=== PATIENT | female | born 1955 | race Caucasian/White ===

== ENCOUNTER 2018-09-19 09:33 | Emergency (ER) | payer MEDICARE ==
[~2018-09-19] VITALS: Ht 167.6 cm; Wt 81.8 kg
[~2018-09-19 09:33] MED LIST: DIVA125T2 PO; DIVA250T14 PO; RISP2TAB35 PO; RISP4TAB34 PO; TRAZ-137 PO
[2018-09-19 09:36] VITALS: BP 120/74
[2018-09-19] MEDS ORDERED: RISP4TAB34 PO (09:51)
[2018-09-19] MEDS ORDERED: RISPERIDONE 1 MG TABLET PO ONE (10:00)
== END 2018-09-19 10:27 | disposition home or self-care (01) ==
LOC: ED 10:15
DX: F20.0 Paranoid schizophrenia (principal); F17.200 Nicotine dependence, unspecified, uncomplicated
CPT/HCPCS: 99284

== ENCOUNTER 2020-03-09 22:17 | Emergency (ER) | payer OTHER, MEDICAID ==
[~2020-03-09] VITALS: Ht 154.9 cm; Wt 80.0 kg
[~2020-03-09 22:17] MED LIST changes: -TRAZ-137 PO; +TRAZ-175 PO
[2020-03-09] MEDS: PLEASE ENTER ALLERGIES MC SCH (22:30)
[2020-03-09] MEDS ORDERED: LORazepam 2 MG/ML, 1ML IM ONE (22:30)
[2020-03-09] MEDS ORDERED: ZIPRASIDONE 20 MG INJ IM ONE (22:30)
[2020-03-09 22:40] LABS: BASOPHILS # (AUTO) 0.13 x10^3/uL (0-0.1); BASOPHILS % (AUTO) 2 % (0-1); EOSINOPHILS # (AUTO) 0.12 x10^3/uL (0-0.4); EOSINOPHILS % (AUTO) 1 % (1-7); LYMPHOCYTES % (AUTO) 24 % (22-44); MD NO; MEAN CORPUSCULAR HEMOGLOBIN 31.7 pg (27.0-34.8); MEAN CORPUSCULAR HGB CONC 33.5 g/dL (32.4-35.8); MEAN CORPUSCULAR VOLUME 94.6 fL (80-100); MEAN PLATELET VOLUME 8.1 fL (7.4-10.4); MONOCYTES # (AUTO) 0.54 x10^3/uL (0.2-0.8); MONOCYTES % (AUTO) 6 % (2-9); NEUTROPHILS # (AUTO) 5.93 x10^3/uL (1.8-6.8); NEUTROPHILS % (AUTO) 67 % (42-75); PLATELET COUNT 316 x10^3/uL (130-400); RED BLOOD COUNT 4.35 x10^6/uL (3.82-5.3)
[2020-03-09 22:49] LABS: ALANINE AMINOTRANSFERASE 13 U/L (12-78); ALBUMIN 3.9 g/dL (3.4-5.0); ANION GAP 7 mmol/L (5-15); CHLORIDE 108 mmol/L (98-107); SALICYLATE LEVEL 5.1 mg/dL (2.8-20.0)
[2020-03-09 22:51] LABS: ALKALINE PHOSPHATASE 63 U/L (45-117); BILIRUBIN,TOTAL 0.7 mg/dL (0.2-1.0); CREATININE 0.97 mg/dL (0.55-1.02); TOTAL PROTEIN 7.4 g/dL (6.4-8.2)
--- NOTE | 2020-03-09 23:15 | NUR ---
Pt bib remsa, pt is a&ox2. Pt is rambling about [place]le, [place] iced teas, and seeing blood everywhere. Pt is somewhat cooperative but doesn't always follow commands appropriately. Pt was found by EVETTE wandering downtown.
--- NOTE | 2020-03-10 00:09 | NUR ---
Pt ambulated to restroom and provided urine sample. Pt back in room, sitter in direct line of sight, no current needs. Resp even and unlabored.
[2020-03-10 00:16] LABS: MICROSCOPIC AUTO
[2020-03-10 00:26] LABS: AMPHETAMINE SCREEN, URINE Negative (Negative); BARBITURATE SCREEN, URINE Negative (Negative); BENZODIAZEPINE SCREEN, URINE Negative (Negative); CANNABINOID SCREEN, URINE Negative (Negative); COCAINE SCREEN, URINE Negative (Negative); METHADONE SCREEN, URINE Negative (Negative); OPIATE SCREEN, URINE Negative (Negative)
--- NOTE | 2020-03-10 00:40 | NUR ---
TASK RN: PT RESTING IN [facility] W EYES CLOSED. EVEN/REGULAR RESPIRATIONS NOTED. SITTER PRESENT
--- NOTE | 2020-03-10 00:56 | NUR ---
Pt attempted to elope from ER. Pt was looking back and forth rapidly while telling nurse to "come with her to safety." Pt reorriented and redirected back to room. Pt resting at this time.
[2020-03-10] MEDS ORDERED: CEFTRIAXONE 1,000 MG IM ONE (01:00)
[2020-03-10] MEDS ORDERED: CEFTRIAXONE 1,000 MG ONE (01:24)
--- NOTE | 2020-03-10 01:56 | NUR ---
MD Major (telepsych) spoke to patient. She recommends inpatient treatment for pt and geodon 20mg twice a day.
--- NOTE | 2020-03-10 05:22 | NUR ---
GAS STATION SUPERVISOR: PACKET FAXED TO [facility]. IS SELF PAY ONLY; CONFIRMATION FAX RECEIVED BACK.
--- NOTE | 2020-03-10 05:35 | NUR ---
GREEN CHAIN OFF BEARER: TELEPSYCH CONSULT FAX RECEIVED. MED RECOMMENDATIONS PRESENTED TO ERMD AND MED ORDERS RECEIVED PER THE RECOMMENDATIONS.
--- NOTE | 2020-03-10 05:45 | NUR ---
Food and water provided to patient. Pt tearful and asking for "brother sincere"
--- NOTE | 2020-03-10 06:06 | NUR ---
Pt attempted to elope again. Pt was sitting at discharge desk, tearful. Pt stated that she thinks she "lost a friend." Pt redirected easily to room, pt given another blanket and said she didn't "really care that gilberto's ." Pt in bed, resp even and unlabored, in no acute distress at this time.
[2020-03-10] MEDS: PLEASE ENTER ALLERGIES MC SCH ×2 (06:30→14:30)
--- NOTE | 2020-03-10 06:51 | NUR ---
report from Armida
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
--- NOTE | 2020-03-10 08:30 | NUR ---
MEAL TRAY GIVEN. SITTER PRESENT
[2020-03-10] MEDS: ZIPRASIDONE 20MG CAPSULE PO SCH ×2 (09:00→20:36)
[2020-03-10] MEDS: CEFDINIR 300 MG CAPSULE PO SCH ×2 (09:00→22:00)
--- NOTE | 2020-03-10 09:24 | NUR ---
PT RESTING ON GURNEY, TEARFUL AT TIMES. SITTER PRESENT
--- NOTE | 2020-03-10 10:30 | NUR ---
PT AMBULATED TO BATHROOM, WILL OCCASIONLY CALL OUT RANDOM NAMES. SITTER PRESENT
--- NOTE | 2020-03-10 11:41 | NUR ---
PT RESTING, SITTER PRESENT.
--- NOTE | 2020-03-10 12:30 | NUR ---
GIVEN MEAL TRAY, PT YELLING RANDOM WORDS, SITTER PRESENT
[2020-03-10] MEDS ORDERED: ZIPRASIDONE 20MG CAPSULE ONE ×2 (13:26→20:34)
[2020-03-10] MEDS ORDERED: CEFDINIR 300 MG CAPSULE ONE (13:26)
--- NOTE | 2020-03-10 13:30 | NUR ---
PT RESTING, AMBULATED TO [facility]
--- NOTE | 2020-03-10 15:18 | NUR ---
PT SLEEPING, SITTER PRESENT
--- NOTE | 2020-03-10 16:13 | NUR ---
PT AMBULATED TO BATHROOM, SITTER PRESENT.
--- NOTE | 2020-03-10 17:00 | NUR ---
PT GIVEN MEAL TRAY.
--- NOTE | 2020-03-10 18:50 | NUR ---
REPORT FROM LIZBETH JIANG ASSUMING CARE OF PT AT THIS TIME
--- NOTE | 2020-03-10 18:50 | NUR ---
REPORT TO JACKI
--- NOTE | 2020-03-10 20:04 | NUR ---
PT ATTEMPTED TO RUN INTO ANOTHER OCCUPIED ROOM, PT NOT REDIRECTED BY APOLINAR LAM TO ASSIST PT BACK TO BED. PT NOW BACK ON [place], WILL TRANSFER TO HOSPITAL BED ONCE PT IS CALMER
--- NOTE | 2020-03-10 20:36 | NUR ---
PT UP TO RESTROOM, BED SWITCHED TO HOSPITAL BED, PT MEDICATED PER Dec, RIGHTS VERIFIED. JOSE LAM REMAINS IN PLACE
--- NOTE | 2020-03-10 21:11 | NUR ---
PT RESTING ON HOSPITAL BED JOSE LAM IN [facility]
--- NOTE | 2020-03-10 22:00 | NUR ---
PT FOUND TO BE GRABBING DOOR AND SHOUTING AT SITTER, PT DIRECTED TO RESTROOM AND DIRECTED BACK TO BED AT THIS TIME
--- NOTE | 2020-03-10 22:02 | NUR ---
PT PROVIDED WITH SANDWICH AT THIS TIME
[2020-03-10] MEDS ORDERED: HALOPERIDOL 5 MG/ML IM ONE (22:30)
[2020-03-10] MEDS ORDERED: DIPHENHYDRAMINE 50 MG/ML, 1ML IM ONE (22:30)
[2020-03-10] MEDS ORDERED: LORazepam 2 MG/ML, 1ML IM ONE (22:30)
[2020-03-10] MEDS ORDERED: LORazepam 2 MG/ML, 1ML ONE (22:31)
[2020-03-10] MEDS ORDERED: HALOPERIDOL 5 MG/ML ONE (22:31)
[2020-03-10] MEDS ORDERED: DIPHENHYDRAMINE 50 MG/ML, 1ML ONE (22:31)
--- NOTE | 2020-03-10 22:34 | NUR ---
PT HAS ESCALATED TO ATTEMPTING TO ELOPE AND SCREAMING AT SITTER. PT REFUSING TO FOLLOW COMMANDS AND KEEPS SHOUTING FOLLOW ME ITS THE SAFEST WAY. ATTEMPTED TO REORIENT PT HOWEVER UNSUCCESSFUL, ERP UPDATED NEW MED ORDERS, PT MEDICATED PER MAR SECURITY AT BEDSIDE TO ASSIST HOLDING PT
--- NOTE | 2020-03-10 23:04 | NUR ---
PT NOW SLEEPING ON HOSPITAL BED. SITTER IN HALLWAY
--- NOTE | 2020-03-10 23:51 | NUR ---
PT STILL SLEEPING, SITTER IN [place] FOR SAFETY
--- NOTE | 2020-03-11 00:47 | NUR ---
BREAK RN FOR PRIMARY RN JACKI. PT RESTING WITH EYES CLOSED ON ED GURNEY, RESP REGULAR, EVEN, UNLABORED. PT IN MONITORED ROOM AND SITTER AT DOOR FOR CONTINUOUS SAFETY OBSERVATION. ANILA NOTED. GARAGE DOORS REMAIN DOWN FOR SAFETY. SIDE RAILS UPX2. FALL PRECAUTIONS IN PLACE. Addendum: 03/11/20 at 0110 by MIL BREAK RN FOR PRIMARY RN JACKI. PT RESTING WITH EYES CLOSED ON HOSPITAL BED, RESP REGULAR, EVEN, UNLABORED. PT IN MONITORED ROOM AND SITTER AT DOOR FOR CONTINUOUS SAFETY OBSERVATION. NAD NOTED. GARAGE DOORS REMAIN DOWN FOR SAFETY. SIDE RAILS UPX2. FALL PRECAUTIONS IN PLACE.
--- NOTE | 2020-03-11 01:30 | NUR ---
BEDSIDE REPORT AND TRANSFER OF CARE BACK TO PRIMARY RN JACKI
--- NOTE | 2020-03-11 01:55 | NUR ---
PT CONTINES TO REST SITTER IN HALLWAY
--- NOTE | 2020-03-11 02:59 | NUR ---
PT STILL SLEEPING ON HOSPITAL BED, [place] IN [place]
--- NOTE | 2020-03-11 04:11 | NUR ---
PT SLEEPING ON BED JOSE LAM IN [facility]
--- NOTE | 2020-03-11 06:27 | NUR ---
pt up to restroom and back to bed no assist req. sitter remains
--- NOTE | 2020-03-11 06:55 | NUR ---
Report from Elvi JIANG. Pt resting in bed with eyes closed, resp even and unlabored, NADN. Room remains secured, sitter within eyesight of pt, all safety measures observed.
--- NOTE | 2020-03-11 07:34 | NUR ---
Meal tray ordered for pt. Pt continues resting in bed with eyes closed, resp even and unlabored, ANILAN.
--- NOTE | 2020-03-11 08:27 | NUR ---
Meal tray delivered to pt with SI precautions observed. This RN attempted to perform suicide reassessment per protocol and pt became visibly upset, shouting "Why do I have to go through this suicide shit again? Dear Mr. Carlson what is the point of anything anymore?" This RN provided verbal reassurance and pt became more calm, began eating breakfast, denies other needs.
--- NOTE | 2020-03-11 09:42 | NUR ---
Pt continues resting in bed, NADN, watching TV.
--- NOTE | 2020-03-11 10:08 | NUR ---
Pt ambulatory to bathroom and back to bed without difficulty. Pt able to position herself in bed for comfort, denies other needs. Room remains secured, sitter within eyesight of pt, all safety measures observed.
[2020-03-11] MEDS ORDERED: ZIPRASIDONE 20MG CAPSULE ONE (10:16)
[2020-03-11] MEDS ORDERED: CEFDINIR 300 MG CAPSULE ONE (10:16)
[2020-03-11] MEDS: CEFDINIR 300 MG CAPSULE PO SCH (10:24)
[2020-03-11] MEDS: ZIPRASIDONE 20MG CAPSULE PO SCH (10:24)
--- NOTE | 2020-03-11 10:25 | NUR ---
Pt medicated per MAR, denies other needs.
--- NOTE | 2020-03-11 11:11 | NUR ---
Pt resting in bed with eyes closed, resp even and unlabored, NADN. Room remains secured, sitter within eyesight of pt, all safety measures observed.
--- NOTE | 2020-03-11 11:31 | NUR ---
Meal tray ordered for pt.
--- NOTE | 2020-03-11 12:16 | NUR ---
Meal tray delivered to pt with SI precautions observed.
[2020-03-11] MEDS ORDERED: OLANZAPINE 10 MG INJ IM PRN (12:30)
[2020-03-11] MEDS ORDERED: NICOTINE 14MG/24 HR PATCH.TD24 TD ONE (12:30)
[2020-03-11] MEDS ORDERED: NICOTINE 14MG/24 HR PATCH.TD24 ONE (12:59)
[2020-03-11] MEDS ORDERED: OLANZAPINE 10 MG TABLET ONE (12:59)
[2020-03-11] MEDS: OLANZAPINE 10 MG TABLET PO SCH (13:03)
[2020-03-11] MEDS: PLEASE ENTER ALLERGIES MC SCH (13:03)
--- NOTE | 2020-03-11 13:03 | NUR ---
RECEIVED REPORT FROM APOLINAR DOW. PT RESTING IN BED. NADN. MEDICATED PER DEC. SITTER REMAINS AT BEDSIDE. ROOM REMAINS SECURE.
--- NOTE | 2020-03-11 14:20 | NUR ---
PT CRYINIG IN BED. STATES SHE IS UPSET AND WANTS SOMETHING COLD. PROVIDED W/ CARLOS GUEVARA.
--- NOTE | 2020-03-11 14:28 | NUR ---
THROUGHPUT: [facility] DENIED DUE TO PT INS-[employer]
--- NOTE | 2020-03-11 14:56 | NUR ---
PT RESTING IN BED. NADN. SITTER REMAINS AT BEDSIDE. ROOM REMAINS SECURE.
--- NOTE | 2020-03-11 15:10 | NUR ---
PT RESTING IN BED. NADN. SITTER REMAINS AT BEDSIDE. ROOM REMAINS SECURE.
--- NOTE | 2020-03-11 16:03 | NUR ---
PT RESTING IN BED. NADN. SITTER REMAINS AT BEDSIDE. ROOM REMAINS SECURE.
--- NOTE | 2020-03-11 16:15 | NUR ---
MEAL TRAY PROVIDED.
--- NOTE | 2020-03-11 16:46 | NUR ---
PT RESTING IN BED. NADN. VSS. SITTER REMAINS AT BEDSIDE. ROOM REMAINS SECURE.
--- NOTE | 2020-03-11 18:07 | NUR ---
PT UPSET ABOUT BEING STUCK IN HER ROOM AND WANTS TO GO OUTSIDE TO SMOKE. PT EDUCATED ON SMOKE FREE POLICY. PT UPSET. MEDICATED PER MAR AND PROVIDED W/ SNACKS. PT NOW CALM IN ROOM.
--- NOTE | 2020-03-11 19:00 | NUR ---
PT RESTING ON [place]. JOSE. SITTER REMAINS AT BEDSIDE. ROOM REMAINS SECURE.
--- NOTE | 2020-03-11 19:05 | NUR ---
LATE NOTE: REPORT RECEIVED FROM APOLINAR PINEDO. PT RESTING WITH EYES CLOSED, RESPIRATIONS EVEN AND NONLABORED. SITTER IN HALLWAY WITHIN LINE OF SIGHT, ROOM SECURED.
--- NOTE | 2020-03-11 21:36 | NUR ---
PT PROVIDED COFFEE AND WATER. PT RESTING ON GURNEY WITH EYES CLOSED, RESPIRATIONS EVEN AND NONLABORED. ROOM SECURED, SITTER IN HALLWAY.
--- NOTE | 2020-03-11 22:41 | NUR ---
PT RESTING WITH EYES CLOSED, RESPIRATIONS EVEN AND NONLABORED. ROOM SECURED, SITTER IN HALLWAY WITHIN LINE OF SIGHT.
--- NOTE | 2020-03-11 23:47 | NUR ---
PT PROVIDED MEAL AT THIS TIME. DENIES FURTHER NEEDS AT THIS TIME.
--- NOTE | 2020-03-12 01:54 | NUR ---
PT RESTING ON GURNEY WITH EYES CLOSED, RESPIRATIONS EVEN AND NONLABORED. ROOM SECURED, SITTER IN HALLWAY WITHIN LINE OF SIGHT.
--- NOTE | 2020-03-12 02:53 | NUR ---
PT RESTING ON HOSPITAL BED WITH EYES CLOSED, RESPIRATIONS EVEN AND NONLABORED. SITTER IN HALLWAY, ROOM SECURED.
--- NOTE | 2020-03-12 04:28 | NUR ---
PT RESTING ON HOSPITAL BED, RESPIRATIONS EVEN AND NONLABORED. SITTER IN HALLWAY WITHIN LINE OF SIGHT, ROOM SECURED .
--- NOTE | 2020-03-12 05:49 | NUR ---
PT PROVIDED DECAF COFFEE, DENIES FURTHER NEEDS AT THIS TIME.
--- NOTE | 2020-03-12 06:56 | NUR ---
REPORT TO APOLINAR CARSON.
--- NOTE | 2020-03-12 07:06 | NUR ---
SBAR BEDSIDE HAND-OFF REPORT RECEIVED FROM APOLINAR JOY. ASSUMING CARE OF PATIENT. PT RESTING QUIETLY AT THIS TIME AND WATCHING TV. PT REMAINS UNDER CONSTANT SUPERVISION OF SITTER AND REMAINS SAFE.
[2020-03-12] MEDS ORDERED: CEFDINIR 300 MG CAPSULE ONE (11:07)
[2020-03-12] MEDS ORDERED: OLANZAPINE 10 MG TABLET ONE (11:07)
[2020-03-12] MEDS: CEFDINIR 300 MG CAPSULE PO SCH ×2 (11:07→11:57)
[2020-03-12] MEDS: OLANZAPINE 10 MG TABLET PO SCH (11:07)
[2020-03-12] MEDS: PLEASE ENTER ALLERGIES MC SCH ×2 (11:58→13:07)
--- NOTE | 2020-03-12 12:09 | NUR ---
TASK RN: PT PROVIDED W/ SI LUNCH MEAL TRAY. RESTING IN BED. NADN. SITTER REMAINS AT BEDSIDE. ROOM REMAINS SECURE.
[2020-03-12 15:20] VITALS: BP 115/68
--- NOTE | 2020-03-12 16:35 | NUR ---
SBAR TELEPHONE REPORT GIVEN TO APOLINAR MICHELLE, AT [facility]. VIVIANA TO CALL MD TO GAIN ACCEPTANCE AND WILL CALL BACK.
--- NOTE | 2020-03-12 16:44 | NUR ---
DINNER TRAY ORDERED FOR PATIENT. PT SLEEPING AT THIS TIME. PT REMAINS UNDER CONSTANT SUPERIVION OF SITTER AND REMAINS SAFE.
--- NOTE | 2020-03-12 17:15 | NUR ---
[facility] IS ACCEPTING PATIENT. DR. WALTER IS THE ACCEPTING DOCTOR.
--- NOTE | 2020-03-12 17:49 | NUR ---
SBAR HAND-OFF REPORT GIVEN TO APOLINAR PABLO.
--- NOTE | 2020-03-12 18:01 | NUR ---
RECEIVED REPORT FROM APOLINAR CARSON. PT RESTING ON [facility]. SITTER REMAINS AT BEDSIDE. ROOM REMAINS SECURE.
--- NOTE | 2020-03-12 18:27 | NUR ---
PT RESTING IN BED. NADN. SITTER REMAINS AT BEDSIDE. ROOM REMAINS SECURE.
--- NOTE | 2020-03-12 18:49 | NUR ---
REPORT FROM BEV ASSUMING CARE OF PT, PT AWAITING TRANSPORT TO PSYCH FACILITY.
--- NOTE | 2020-03-12 18:52 | NUR ---
REPORT GIVEN TO MARGO ECHEVERRIA RN.
== END 2020-03-12 19:15 ==
LOC: UNMERGE 03-10 01:22 → MERGE 03-10 01:22 → ED 03-10 01:22
DX: F23 Brief psychotic disorder (principal); F22 Delusional disorders; N30.00 Acute cystitis without hematuria; R94.31 Abnormal electrocardiogram [ECG] [EKG]; R41.0 Disorientation, unspecified
CPT/HCPCS: 36415; 70450; 80053; 80307; 81001; 85025; 87077; 87086; 87186; 93005; 96372; 99285; J0696; J1200; J1630; J2060; J3486

== ENCOUNTER 2020-03-19 22:31 | Emergency (ER) | payer OTHER, MEDICAID ==
[~2020-03-19] VITALS: Ht 165.1 cm; Wt 80.0 kg
--- NOTE | 2020-03-19 22:51 | NUR ---
Note undone in EDM - 03/19/20 at 2251 by Bryn Mawr CollegeJADEN bib remsa, pt with c/o of n/v and near syncope. hx preeclampsia. . 0.5 atropine given by remsa derrick boat captain becuase pt was found sinus bradycardic in the 30s and 40s. after atropine, pt developed headache w/photophobia, hypertension and lacy red rash on the upper extremities.
--- NOTE | 2020-03-19 22:52 | NUR ---
brought in by [facility] Geology Teacher. per report patient was released from [facility] but made a statement that she will kill herself and was placed on legal hold.
--- NOTE | 2020-03-19 22:52 | NUR ---
initial encounter to patient. states " I need my medication , I need an ativan and trazodone, risperdal, I need it now ". then talking to herself.
--- NOTE | 2020-03-19 22:52 | NUR ---
PT CURRENTLY DENIES HI/SI, STATES THAT SHE JUST WANTS TO LEAVE AND GO HOME. PA STATES THAT SHE IS GOING TO RUN SOME LABS AND TELE PSYCH PT. PLACED IN SECURE ROOM.
--- NOTE | 2020-03-19 22:55 | NUR ---
LABS CURRENTLY BEING DRAWN
--- NOTE | 2020-03-19 22:56 | NUR ---
laborer adjustable steel joist at bedside for blood draw.
[2020-03-19 23:08] LABS: BASOPHILS # (AUTO) 0.05 x10^3/uL (0-0.1); BASOPHILS % (AUTO) 1 % (0-1); EOSINOPHILS # (AUTO) 0.09 x10^3/uL (0-0.4); EOSINOPHILS % (AUTO) 1 % (1-7); LYMPHOCYTES # (AUTO) 1.95 x10^3/uL (1-3.4); LYMPHOCYTES % (AUTO) 21 % (22-44); MD NO; MEAN CORPUSCULAR HEMOGLOBIN 31.6 pg (27.0-34.8); MEAN CORPUSCULAR HGB CONC 33.4 g/dL (32.4-35.8); MEAN CORPUSCULAR VOLUME 94.6 fL (80-100); MEAN PLATELET VOLUME 9.2 fL (7.4-10.4); MONOCYTES # (AUTO) 0.76 x10^3/uL (0.2-0.8); MONOCYTES % (AUTO) 8 % (2-9); NEUTROPHILS # (AUTO) 6.27 x10^3/uL (1.8-6.8); NEUTROPHILS % (AUTO) 69 % (42-75); PLATELET COUNT 224 x10^3/uL (130-400); RED BLOOD COUNT 4.45 x10^6/uL (3.82-5.3); RED CELL DISTRIBUTION WIDTH 13.9 % (9.6-15.2)
[2020-03-19 23:18] LABS: ALANINE AMINOTRANSFERASE 14 U/L (12-78); ALBUMIN 4.1 g/dL (3.4-5.0); ANION GAP 5 mmol/L (5-15); CALCIUM 9.2 mg/dL (8.5-10.1); CHLORIDE 105 mmol/L (98-107); CREATININE 0.97 mg/dL (0.55-1.02); SALICYLATE LEVEL < 1.7 mg/dL (2.8-20.0)
[2020-03-19 23:20] LABS: ALKALINE PHOSPHATASE 79 U/L (45-117); BILIRUBIN,TOTAL 1.2 mg/dL (0.2-1.0); TOTAL PROTEIN 7.4 g/dL (6.4-8.2)
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
--- NOTE | 2020-03-20 | NUR ---
PT RESTING ON GURNEY, EYES CLOSED RESPIRATIONS EVEN AND UNLABORED. SITTER AT DOORWAY FOR FREQUENT CHECKS.
--- NOTE | 2020-03-20 01:33 | NUR ---
report to ramses lemos
--- NOTE | 2020-03-20 02:14 | NUR ---
PT RESTING, RESP EVEN AND UNLABORED, SITTER IN HALLWAY FOR SAFETY AND CHECKS
--- NOTE | 2020-03-20 03:30 | NUR ---
PT UP TO RESTROOM AWARE OF NEED FOR URINE SAMPLE
--- NOTE | 2020-03-20 03:56 | NUR ---
TP: PT DENIED BY [facility] DUE TO INSURANSE. [facility]
--- NOTE | 2020-03-20 03:57 | NUR ---
URINE SENT TO LAB
[2020-03-20 04:14] LABS: AMPHETAMINE SCREEN, URINE Negative (Negative); BARBITURATE SCREEN, URINE Negative (Negative); BENZODIAZEPINE SCREEN, URINE Negative (Negative); CANNABINOID SCREEN, URINE Negative (Negative); COCAINE SCREEN, URINE Negative (Negative); METHADONE SCREEN, URINE Negative (Negative); OPIATE SCREEN, URINE Negative (Negative)
--- NOTE | 2020-03-20 04:28 | NUR ---
[facility] FOR SAFETY. NO NEEDS AT THIS TIME
--- NOTE | 2020-03-20 05:19 | NUR ---
PT HARJIT PETERS AT [facility] ABOUT ASTROLOGY AND SIGNS. PT REQ CLARIBEL HAIR. PT EDUCATED THAT SHE WILL HAVE BREAKFAST SOON. WILL PROVIDE SNACKS
--- NOTE | 2020-03-20 06:53 | NUR ---
report received from aminta pearce.
--- NOTE | 2020-03-20 07:57 | NUR ---
MEAL TRAY PROVIDED AT THIS TIME.
--- NOTE | 2020-03-20 08:46 | NUR ---
DENIED BY [facility]. JUST LEFT THERE AND HAS USED UP HER INSURANCE DAYS
--- NOTE | 2020-03-20 08:47 | NUR ---
Genna huang in ED - 03/20/20 at 0857 by MARQUIS SUCIDAL ASSESSMENT IS NOT DONE AT THIS TIME AND UNABLE TO DO IT AT THIS TIME D/T HALLUCINATION AND FLIGHT OF IDEAS.
--- NOTE | 2020-03-20 08:57 | NUR ---
SUICIDAL RE-ASSESSMENT IS NOT DONE AT THIS TIME AND UNABLE TO DO IT AT THIS TIME D/T HALLUCINATION AND FLIGHT OF IDEAS. SITTER MONITORING FROM [facility] FOR SAFETY. ROOM SECURE.
--- NOTE | 2020-03-20 09:46 | NUR ---
PT RESTING. RESPS EVEN AND UNLABORED. SITTER MONITORING FROM HALLWAY FOR SAFETY. ROOM REMAINS SECURE.
--- NOTE | 2020-03-20 10:48 | NUR ---
NUCLEAR PHYSICIAN AT BEDSIDE TO EVALUATE AT THIS TIME.
--- NOTE | 2020-03-20 11:03 | NUR ---
DIET TRAY ORDERED AT THIS TIME.
[2020-03-20] MEDS ORDERED: DIVALPROEX 500 MG TAB.ER.24H ONE ×2 (11:15→20:19)
[2020-03-20] MEDS ORDERED: RISPERIDONE 2 MG TABLET ONE (11:15)
[2020-03-20] MEDS: RISPERIDONE 1 MG TABLET PO SCH ×2 (11:22→20:29)
[2020-03-20] MEDS: DIVALPROEX 500 MG TAB.ER.24H PO SCH ×2 (11:22→20:29)
--- NOTE | 2020-03-20 11:22 | NUR ---
PT MEDICATED PER EMAR. PT TOLERATED WELL.
[2020-03-20] MEDS ORDERED: LORazepam 0.5MG TABLET PO PRN (11:30)
--- NOTE | 2020-03-20 12:12 | NUR ---
PT RESTING. RESPS EVEN AND UNLABORED. SITTER MONITORING FROM HALLWAY FOR SAFETY. ROOM REMAINS SECURE.
--- NOTE | 2020-03-20 12:56 | NUR ---
MEAL TRAY PROVIDED AT THIS TIME.
--- NOTE | 2020-03-20 13:48 | NUR ---
PT RESTING. RESPS EVEN AND UNLABORED. SITTER MONITORING FROM HALLWAY FOR SAFETY. ROOM REMAINS SECURE.
--- NOTE | 2020-03-20 14:44 | NUR ---
PT RESTING. RESPS EVEN AND UNLABORED. SITTER MONITORING FROM HALLWAY FOR SAFETY. ROOM REMAINS SECURE.
--- NOTE | 2020-03-20 15:41 | NUR ---
PT RESTING. RESPS EVEN AND UNLABORED. SITTER MONITORING FROM HALLWAY FOR SAFETY. ROOM REMAINS SECURE.
--- NOTE | 2020-03-20 16:44 | NUR ---
PT RESTING. RESPS EVEN AND UNLABORED. SITTER MONITORING FROM HALLWAY FOR SAFETY. ROOM REMAINS SECURE.
--- NOTE | 2020-03-20 17:04 | NUR ---
DIET TRAY ORDERED AT THIS TIME.
--- NOTE | 2020-03-20 17:40 | NUR ---
MEAL TRAY PROVIDED AT THIS TIME.
--- NOTE | 2020-03-20 17:53 | NUR ---
WATER PROVIDED AT THIS TIME PER REQUEST.
--- NOTE | 2020-03-20 18:30 | NUR ---
HOSPITAL BED ORDERED FROM HOUSE KEEPING AT THIS TIME.
--- NOTE | 2020-03-20 18:49 | NUR ---
REPORT GIVEN TO LIZBETH JIANG.
--- NOTE | 2020-03-20 18:54 | NUR ---
REPORT FROM DEANNA JIANG. PT [id number] IN NAD, EVEN AND UNLABORED RESPIRATIONS, ROOM SECURED FOR SAFETY, SITTER WATCHING FROM DOORWAY.
--- NOTE | 2020-03-20 19:13 | NUR ---
HOSPITAL BED PROVIDED.
--- NOTE | 2020-03-20 20:12 | NUR ---
PT SLEEPING IN NAD, RESPIRATIONS EVEN AND UNLABORED. SITTER AT DOORWAY FOR SAFETY WATCH.
--- NOTE | 2020-03-20 20:33 | NUR ---
PT MEDICATED PER MAR, WAS COOPERATIVE TAKING MEDS. PT STATES SHE WANTS RN TO CRY FOR HER BECAUSE SHE CAN'T CRY ANYMORE, PT THEN BEGAN LAUGHING. SITTER AT DOORWAY FOR SAFETY WATCH.
[2020-03-20] MEDS ORDERED: RISP1TAB3 PO (20:38)
[2020-03-20] MEDS ORDERED: LORazepam 0.5MG TABLET ONE (21:12)
--- NOTE | 2020-03-20 21:17 | NUR ---
PT REPORTS FEELING AGITATED. MEDICATED WITH ATIVAN.
--- NOTE | 2020-03-20 22:48 | NUR ---
RESTING WATCHING TV, SITTER AT DOORWAY FOR SAFETY MONITORING.
--- NOTE | 2020-03-21 00:41 | NUR ---
PT SLEEPING IN NO DISTRESS, EVEN RESPIRATION NOTED. ROOM SECURED FOR SAFETY AND SITTER WATCHING AT DOORWAY.
[2020-03-21] MEDS ORDERED: ZIPRASIDONE 20 MG INJ IM ONE ×2 (03:00)
--- NOTE | 2020-03-21 03:18 | NUR ---
PT BECAME AGITATED YELLING AT STAFF, PT MEDICATED PER MAR.
--- NOTE | 2020-03-21 04:07 | NUR ---
PT RESTING ON BED, IS NOW COOPERATIVE WITH STAFF. SITTER AT DOOR FOR SAFETY WATCH.
--- NOTE | 2020-03-21 06:53 | NUR ---
REPORT GIVEN TO ANTONIO JIANG.
--- NOTE | 2020-03-21 07:22 | NUR ---
PT RESTING CALMLY IN BED WITH EYES CLOSED. WILL CONTINUE TO MONITOR. SITTER AT DOOR FOR OBS.
[2020-03-21] MEDS ORDERED: DIVALPROEX 500 MG TAB.ER.24H ONE (08:29)
[2020-03-21] MEDS ORDERED: RISPERIDONE 2 MG TABLET ONE (08:29)
[2020-03-21 08:35] VITALS: BP 102/67
--- NOTE | 2020-03-21 08:45 | NUR ---
PT GIVEN MEAL TRAY, VITALS DONE. PT RESTING CALMLY IN ROOM. PT COOPERATIVE WITH AM MEDS. SITTER AT DOOR. WILL CONTINUE TO MONITOR.
[2020-03-21] MEDS: RISPERIDONE 1 MG TABLET PO SCH (08:46)
[2020-03-21] MEDS: DIVALPROEX 500 MG TAB.ER.24H PO SCH (08:46)
--- NOTE | 2020-03-21 09:42 | NUR ---
PT SITTING UP IN BED WATCHING TV, TALKING TO THE SITTER. NO STATED NEEDS AT THIS TIME. SITTER AT DOOR
--- NOTE | 2020-03-21 10:29 | NUR ---
PT RESTING CALMLY IN BED AT THIS TIME WITH EYES CLOSED. NO STATED NEEDS. SITTER AT DOOR FOR OBS.
--- NOTE | 2020-03-21 11:19 | NUR ---
PT RESTING CALMLY IN BED WITH EYES CLOSED. PT ASKED FOR WATER PER THE SITTER. CUP OF WATER SET ON PT [place] STAND. WILL CONTINUE TO MONITOR.
--- NOTE | 2020-03-21 12:07 | NUR ---
PT RESTING IN BED, NO STATED NEEDS. WILL CONTINUE TO MONITOR.
== END 2020-03-21 13:16 | disposition home or self-care (01) ==
LOC: ED 23:04
DX: F22 Delusional disorders (principal); R45.851 Suicidal ideations; Z72.9 Problem related to lifestyle, unspecified; F17.210 Nicotine dependence, cigarettes, uncomplicated
CPT/HCPCS: 36415; 80053; 80164; 80307; 85025; 96372; 99283; J3486

== ENCOUNTER 2021-01-14 10:20 | Emergency (ER) | payer MEDICARE, MEDICAID ==
[~2021-01-14] VITALS: Ht 170.2 cm; Wt 67.0 kg
[~2021-01-14 10:20] MED LIST changes: +RISP1TAB90 PO
[2021-01-14 10:26] VITALS: BP 110/63
--- NOTE | 2021-01-14 10:38 | NUR ---
PT BIB EMS FOR DISORGANIZED ERRATIC THOUGHTS, PRESSURED AND RAPID SPEECH. HX OF SCHIZOPHRENIA. OUT OF MEDS FOR 1 WEEK. PT DENIES SI/SA
[2021-01-14] MEDS ORDERED: ZIPRASIDONE 20MG CAPSULE PO ONE (10:47)
[2021-01-14 11:17] LABS: BASOPHILS % (AUTO) 1 % (0-1); EOSINOPHILS % (AUTO) 1 % (1-7); LYMPHOCYTES % (AUTO) 18 % (22-44); MEAN CORPUSCULAR HEMOGLOBIN 32.6 pg (27.0-34.8); MEAN CORPUSCULAR HGB CONC 34.2 g/dL (32.4-35.8); MEAN PLATELET VOLUME 8.8 fL (7.4-10.4); MONOCYTES % (AUTO) 8 % (2-9); NEUTROPHILS % (AUTO) 73 % (42-75); PLATELET COUNT 239 x10^3/uL (130-400); RED BLOOD COUNT 4.36 x10^6/uL (3.82-5.3); RED CELL DISTRIBUTION WIDTH 14.2 % (9.6-15.2)
[2021-01-14 11:22] LABS: ALBUMIN 3.8 g/dL (3.4-5.0); CALCIUM 9.3 mg/dL (8.5-10.1); CHLORIDE 109 mmol/L (98-107); SALICYLATE LEVEL 4.9 mg/dL (2.8-20.0)
[2021-01-14] MEDS ORDERED: ZIPRASIDONE 20MG CAPSULE ONE (11:25)
[2021-01-14 11:46] LABS: ANION GAP 4 mmol/L (5-15)
--- NOTE | 2021-01-14 12:25 | NUR ---
GIVEN MEAL TRAY
[2021-01-14 12:44] LABS: AMPHETAMINE SCREEN, URINE Negative (Negative); BARBITURATE SCREEN, URINE Negative (Negative); BENZODIAZEPINE SCREEN, URINE Negative (Negative); CANNABINOID SCREEN, URINE Negative (Negative); COCAINE SCREEN, URINE Negative (Negative); METHADONE SCREEN, URINE Negative (Negative); OPIATE SCREEN, URINE Negative (Negative)
[2021-01-14] MEDS ORDERED: OLANZAPINE ODT 10MG PO PRN (13:30)
--- NOTE | 2021-01-14 13:30 | NUR ---
PT RESTING ON GURNEY. AMBULATED TO BATHROOM, SITTER PRESENT
--- NOTE | 2021-01-14 15:28 | NUR ---
MEDICATED PER ORDERS. PT WILL HAVE OUTBURSTS AND START YELLING. PT AWARE SHE IS HAVING OUTBURSTS AND APOLOGIZES. LIGHTS DIMMED
--- NOTE | 2021-01-14 16:10 | NUR ---
SWABBED FOR COVID FOR BHU
--- NOTE | 2021-01-14 17:19 | NUR ---
REPORT TO [facility]
[2021-01-14] MEDS ORDERED: BREX3TAB PO (18:51)
[2021-01-23] MEDS ORDERED: RISP1TAB90 PO (13:24)
[2021-01-23] MEDS ORDERED: CARB200T4 PO (13:24)
[2021-05-18] MEDS ORDERED: CARB200T4 PO (15:04)
[2021-05-18] MEDS ORDERED: PALI3TAB11 PO (15:04)
== END 2021-01-14 21:47 | disposition other institution (70) ==
LOC: ED 15:27
DX: F25.9 Schizoaffective disorder, unspecified (principal); Z20.822 Contact with and (suspected) exposure to COVID-19
CPT/HCPCS: 36415; 80048; 80299; 80307; 80320; 80329; 82040; 85025; 87426; 99285; G0480

== ENCOUNTER 2021-04-27 22:19 | Emergency (ER) | payer MEDICARE, MEDICAID ==
[~2021-04-27] VITALS: Ht 165.1 cm; Wt 59.0 kg
[~2021-04-27 22:19] MED LIST changes: +BREX3TAB PO; +CARB200T4 PO
[2021-04-27 22:47] LABS: BASOPHILS % (AUTO) 1 % (0-1); EOSINOPHILS % (AUTO) 2 % (1-7); LYMPHOCYTES % (AUTO) 30 % (22-44); MEAN CORPUSCULAR HEMOGLOBIN 32.1 pg (27.0-34.8); MEAN CORPUSCULAR HGB CONC 33.8 g/dL (32.4-35.8); MEAN PLATELET VOLUME 9.7 fL (7.4-10.4); MONOCYTES % (AUTO) 8 % (2-9); NEUTROPHILS % (AUTO) 59 % (42-75); PLATELET COUNT 190 x10^3/uL (130-400); RED BLOOD COUNT 4.94 x10^6/uL (3.82-5.3); RED CELL DISTRIBUTION WIDTH 13.1 % (9.6-15.2)
[2021-04-27 22:59] LABS: ALBUMIN 3.9 g/dL (3.4-5.0); ANION GAP 4 mmol/L (5-15); CALCIUM 9.5 mg/dL (8.5-10.1); CHLORIDE 107 mmol/L (98-107); SALICYLATE LEVEL < 1.7 mg/dL (2.8-20.0)
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
--- NOTE | 2021-04-27 23:01 | NUR ---
TASK RN: PT COMBATIVE WITH STAFF, ATTEMPTING TO HIDE UNDER GARAGE DOORS AND FLEE ROOM, ERP UPDATED ORDERS GIVEN FOR B52. SECURITY TO BEDSIDE FOR RESTRAINTS.
[2021-04-27 23:02] LABS: CREATININE 1.05 mg/dL (0.55-1.02)
--- NOTE | 2021-04-27 23:51 | NUR ---
This RN checked on pt and discovered that she had urinated in the bed, pt stated "you need to get me out of these restraints, this is not fair". This RN explained the previous aggression, throwing of objects, and threating staff that got her in this situation. It was explained that if she agreed to act calmly and not throw or threaten staff she would be allowed out of restraints. The pt then stated "you better get me out so I can bash your head in". This RN then told that her statement is not tolerated and is one of the reasons she was put in restraints. Bedding changed, chucks in place, extra blankets provided, and pt educated on asking for assistance so she can use the restroom properly.
[2021-04-28] MEDS ORDERED: LORazepam 1MG TABLET PO ONE (00:30)
[2021-04-28] MEDS ORDERED: HALOPERIDOL 5 MG/ML IV ONE (00:30)
[2021-04-28] MEDS ORDERED: DIPHENHYDRAMINE 50 MG/ML, 1ML IVPush ONE (00:30)
--- NOTE | 2021-04-28 00:57 | NUR ---
Pt resting in bed, O2 sats at 98%, sitter in view of pt, WCTM
--- NOTE | 2021-04-28 01:01 | NUR ---
Restrains removed, CMS intact, NADN, sitter in view of PT
--- NOTE | 2021-04-28 01:05 | NUR ---
REPORT RECEIVED FROM JUAN PABLO JIANG, PT CARE TRANSFERRED AT THIS TIME.
--- NOTE | 2021-04-28 01:36 | NUR ---
Patient is resting comfortably in bed. Bed in lowest, rails engaged, call light on lap. Vital Signs within normal limits. room secured, sitter in line of sight. belongings list completed at this time and belongings in locker. [facility].
--- NOTE | 2021-04-28 03:15 | NUR ---
Patient is resting comfortably in bed. Bed in lowest, rails engaged, call light on lap, eyes closed, even and unlabored respirations. Room secured, sitter in line of sight. [facility].
--- NOTE | 2021-04-28 05:07 | NUR ---
PT AMBULATED TO RESTROOM WITH A SMOOTH A STEADY GAIT, PROVIDED UA CUP AND SUPPLIES TO BRUSH TEETH. PT URINATED IN TOILET AND DID NOT URINATE IN UA CUP. VSS, NAD, BREAKFAST TRAY ORDERED, WCTM.
--- NOTE | 2021-04-28 06:21 | NUR ---
PT RESTING ON GURNEY, NAD, BED IN LOWEST, ROOM SECURED, SITTER IN LINE OF SIGHT, EYES CLOSED, EVEN AND UNLABORED RESPIRATIONS. BREAKFAST TRAY ORDERED. WCTM.
--- NOTE | 2021-04-28 06:53 | NUR ---
REPORT TO SYDNEE JIANG, PT CARE TRANSFERRED AT THIS TIME.
--- NOTE | 2021-04-28 07:09 | NUR ---
PT RESTING WITH EYES CLOSED IN ROOM. AWAITING BREAKFAST TRAY AT THIS TIME. SITTER OUTSIDE OF ROOM FOR DIRECT OBSERVATION AND Q15 MIN SAFETY CHECKS.
--- NOTE | 2021-04-28 07:26 | NUR ---
Called [facility] to see if they can accept patient.
--- NOTE | 2021-04-28 07:46 | NUR ---
PT GIVEN PO FLUIDS.
--- NOTE | 2021-04-28 08:06 | NUR ---
PT MEAL TRAY DELIVERED. NAD NOTED AT THIS TIME. PT COOPERATIVE WITH RN. SITTER OUTSIDE OF ROOM FOR DIRECT OBSERVATION AND Q15 MIN SAFETY CHECKS.
[2021-04-28 08:20] VITALS: BP 95/52
--- NOTE | 2021-04-28 09:02 | NUR ---
PT RESTING IN BED, NAD NOTED AT THIS TIME. RESPIRATIONS EVEN AND UNLABORED ON RA. SITTER OUTSIDE OF ROOM FOR DIRECT OBSERVATION AND Q15 MIN SAFETY CHECKS.
--- NOTE | 2021-04-28 09:42 | NUR ---
PT COVID SWABBED FOR ADMISSION TO [facility].
--- NOTE | 2021-04-28 09:49 | NUR ---
STAFF ON [facility] TENTATIVELY ACCEPTING PT, PENDING COVID SWAB.
--- NOTE | 2021-04-28 10:03 | NUR ---
PT SITTING IN BED, NAD NOTED AT THIS TIME. RESPIRATIONS EVEN AND UNLABORED ON RA. SITTER OUTSIDE OF ROOM FOR DIRECT OBSERVATION AND Q15 MIN SAFETY CHECKS.
--- NOTE | 2021-04-28 10:34 | NUR ---
PT UP TO BATHROOM FOR ORAL HYGEINE. SITTER OUTSIDE OF BATHROOM. CHAPSTICK ALSO PROVIDED.
--- NOTE | 2021-04-28 11:11 | NUR ---
RESULTS COMPLETED FOR COVID SWAB. THROUGHPUT NOTIFIED. PT RESTING IN BED, RESPIRATIONS EVEN AND UNLABORED ON RA. LUNCH TRAY ORDERED. SITTER OUTSIDE OF ROOM FOR DIRECT OBSERVATION AND Q15 MIN SAFETY CHECKS.
--- NOTE | 2021-04-28 11:19 | NUR ---
[facility] NOTIFIED OF NEGATIVE COVID SWAB RESULT. AWAITING CALL BACK.
--- NOTE | 2021-04-28 11:47 | NUR ---
FIRST ATTEMPT TO CALL REPORT
--- NOTE | 2021-04-28 11:51 | NUR ---
REPORT TO APOLINAR SEQUEIRA WHO SAID THAT SHE HAD COME DOWN EARLIER TO DISCUSS ADMISSION TO [facility] WITH PT.
== END 2021-04-28 12:30 ==
LOC: ED 22:49 → EDIP 04-28 07:16 → UNDOADMOB 04-28 07:16 → ED 04-28 12:24
DX: F23 Brief psychotic disorder (principal); F31.9 Bipolar disorder, unspecified; Z87.891 Personal history of nicotine dependence; Z20.822 Contact with and (suspected) exposure to COVID-19
CPT/HCPCS: 96374; 99285; J1630; 36415; 80048; 80299; 80320; 80329; 82040; 85025; 87426; 96375; G0480; J1200